=== PATIENT | male | born 1965 | race Hispanic/Latino ===

== ENCOUNTER → 2023-09-11 12:19 | Outpatient (REF) | payer OTHER, SELFPAY | LOC: CLAB 12:19 | PROVIDERS: ATTENDING PHYSICIAN Surgery | DX: Z87.19 Personal history of other diseases of the digestive system (principal) | CPT/HCPCS: 88305; 88341; 88342 ==

== ENCOUNTER → 2023-09-12 06:26 | Day surgery (SDC) | payer OTHER, SELFPAY | LOC: GI 06:26 | PROVIDERS: ATTENDING PHYSICIAN Surgery | DX: Z12.11 Encounter for screening for malignant neoplasm of colon (principal); Z80.0 Family history of malignant neoplasm of digestive organs; Z86.010 Personal history of colon polyps | CPT/HCPCS: G0105 ==

== ENCOUNTER 2023-10-21 04:12 | Emergency (ER) | payer OTHER, SELFPAY ==
[2023-10-21 04:18] VITALS: BP 136/91
[2023-10-21 04:35] VITALS: BMI 27.4
--- NOTE | 2023-10-21 06:35 | ED.GENMED ---
History of Present Illness
General
Chief Complaint: Fall
Source: patient
Exam Limitations: none
Time Seen by Provider: 10/21/23 05:00
Nursing documentation reviewed up to this point in time: agreed with except (Patient was walking down steps to the garage when he missed a step and fell backward striking his back on the steps.)
Travel History
Have you had any contact with someone who has COVID-19?: No
Do you have any symptoms of coronavirus? Fever > 100 degrees, chills, cough, shortness of breath, sore throat, loss of taste or smell, muscle aches, or headache?: No
History of Present Illness
History of Present Illness:
This is a 57-year-old gentleman who has history of CAD, hypertension, hyperlipidemia and prior history of AL. Chronically maintained on Xarelto as well as low-dose aspirin. Tonight around 9 PM while walking into his garage he stepped down a step,
inadvertently missing the steps and fell backward onto his back. He does not believe he struck his head and denies loss of consciousness. He was able to get up and ambulate but complains of left lateral ankle pain that has gotten progressively
worse as well as left distal thumb pain and swelling. He also notes some mid back pain and mild pain right posterior shoulder. He denies neck pain, denies headache, denies dizziness nor lightheadedness.
He took 2 Tylenol around 2 AM without significant improvement in pain.
He has driven himself to the ED.
Past History
Past History
ED Past Medical History: CAD, HTN, Hypercholesterolemia, AL and Other (HIV)
ED Past Surgical History: Appendectomy and Cardiac (CABG, cardiac catheterization)
Social History
Tobacco: Non-smoker
Alcohol: None
Drug: None
Personal:
Living: with family
Employment: Retired
Family History
Family History: Other (Noncontributory)
Phy Exam
Physical Exam
Physical Exam:
TRAUMA EXAM:
VITAL SIGNS: Vital signs reviewed, cooperative
DISTRESS: No active disease
EYES: Pupils reactive, no orbital trauma
NOSE: No deformity or epistaxis
FACE AND SCALP: No scalp or facial trauma, external canals no blood
NECK: Supple nontender, full range of motion without difficulty nor pain
BACK: Mild midline tenderness mid to lower thoracic spine. No step-off deformity, no soft tissue swelling nor contusion or hematoma. Pelvis stable to compression
RESPIRATORY: No distress, breath sounds normal, no tender chest wall
CARDIAC: No murmur, pulses equal and strong
ABDOMEN: Soft nontender bowel sounds normal
SKIN: Skin intact no bleeding, color normal
EXTREMITIES: Mild to moderate tenderness distal left thumb with mild local soft tissue swelling of the distal left thumb and early ecchymosis. Nail and nailbed are intact. There is full range of motion of thumb and hand as well as digits without
difficulty. Left ankle has mild soft tissue swelling as well as mild ecchymosis laterally with moderate tenderness lateral ankle. Mildly restricted range of motion of left ankle related to pain. There is no tenderness to the foot nor lower leg
nor knee. Sensation and strength intact. Peripheral pulses are full and equal. There is no tenderness to the shoulders and full range of motion of shoulders without difficulty nor pain.
NEUROLOGICAL: Alert, oriented, no motor deficits
PSYCH: Mood affect normal
Course
Orders/Labs/Results
Orders:
Orders
10/21/23 04:33
CR Ankle - Left Min 3 Views Urgent
Comment:
Reason For Exam: fall
CR Finger(s)/thumb Min 2 Vw Lt Urgent
Comment:
Reason For Exam: fall
10/21/23 05:16
Thoracic Spine 3 Views CR [CR Thoracic Spine 3 Views] Urgent
Comment:
Reason For Exam: walking down steps, fell backward, mid back pain
10/21/23 05:18
CT Head W/o Iv Contrast Urgent
Comment:
Reason For Exam: fall backward on steps, (?)head injury-on thinners
10/21/23 05:20
Aluminium Finger Splint Left ONCE
boot [Ortho Boot Left- Treatment] ONCE
Short or tall?: Tall
Vital Signs
Initial and Last Documented VS:
Initial Vital Signs
Temp Pulse Resp BP Pulse Ox
97.7 F 74 20 136/91 98
10/21/23 04:18 10/21/23 04:18 10/21/23 04:18 10/21/23 04:18 10/21/23 04:18
Last Documented Vital Signs
Temp Pulse Resp BP Pulse Ox
97.7 F 74 20 136/91 98
10/21/23 04:18 10/21/23 04:18 10/21/23 04:18 10/21/23 04:18 10/21/23 04:18
MDM/Problems Addressed
Differential Diagnosis Includes:
Patient presents after mechanical fall, falling backward injuring his left thumb, left lateral ankle as well as mid to distal thoracic back.
He is unsure if he struck his head, no evidence of physical head injury but as patient maintained on Xarelto and aspirin will check CT of the head.
Exam concerning for contusion versus fracture of the left distal thumb and concern for left lateral ankle fracture. Will check x-rays and will check thoracic spine x-ray as well.
Patient maintained on Xarelto thus NSAIDs are to be avoided.
Will consider tramadol upon discharge. Patient has driven himself to the ED.
*Radiology
Radiology exam reviewed: preliminary read by ED provider (Left ankle shows mild soft tissue swelling laterally but no evidence of fracture. There is a nondisplaced linear fracture of distal phalanx of left thumb. Thoracic spine shows moderate DJD
but no evidence of acute fracture.) and radiology read reviewed (CT of the head shows no acute traumatic findings.)
*Pulse Oximetry
Patient hypoxic: no
*Critical Care Note
Total Time (30-74mins, 75-104mins- exclusive of procedures): Not Applicable
Update Note
Update Note:
Distal left thumb nondisplaced fracture of distal phalanx. Left thumb has been placed in a frog splint.
Left ankle x-ray negative for fracture. I suspect ankle sprain. He has been placed in a tall Ortho boot and ambulating with steady gait.
Thoracic spine x-ray shows moderate DJD but no evidence of acute fracture.
CT of the head is unremarkable.
Will discharge to home with a prescription for tramadol for as needed moderate pain and recommend he continue Tylenol for mild pain.
Will refer to orthopedics for follow-up As well as follow-up with PCP.
ED Attending Note
-
Portions of this chart may have been created with voice recognition software.� Occasional wrong word or��sound alike� substitutions may have occurred due to the inherent limitations of voice recognition software.
Discharge Plan
Departure
Patient Disposition: Home (Routine Discharge)
Date of Disposition: 10/21/23
Time of Disposition: 06:49
Patient with high blood pressure during this ER visit?: No
Condition: Good
Discharge Problem:
Closed fracture of left thumb, Sprain and strain of left ankle, Contusion of back wall of thorax
Instructions: Ankle Sprain (DC), Preventing falls in adults, Finger Fracture (DC), Walking Boot
Prescriptions:
New
tramadol 50 mg tablet
50 mg PO BID PRN (Reason: Pain) Qty: 10 0RF
No Action
aspirin 81 MG tablet,delayed release (DR/EC)
81 mg PO QPM
Xarelto 20 MG tablet
20 mg PO QPM
Biktarvy 1 EACH tablet
1 ea PO QPM
cholecalciferol (vitamin D3) [Vitamin D3] 50 mcg (2,000 unit) Tablet
50 mcg PO QPM
alprazolam 1 mg tablet
0.5 - 1 mg PO BID PRN (Reason: anxiety/panic/sleep)
Patient Comments:
03/20/2023: last filled 09/17/22, 60 tabs for 30 days from [facility]
rosuvastatin 40 mg tablet
40 mg PO QPM
krill oil [id number],[id number] mg Capsule
1 cap PO QPM
Wegovy 0.25 mg/0.5 mL Pen Injector
0.25 mg SC QWEEK
famotidine [Pepcid] 20 mg tablet
20 mg PO BID PRN (Reason: Gastrointestinal issue)
Referrals:
Hero Jimenez MD [Active] - Call in 1-3 days for appt
Brie Chauhan MD [Family Provider] - Call in 1-3 days for appt
Interventions
Interventions:
*Risk Screen - Suicide Last Done: 10/21/23 04:18
*General Assessment Last Done: 10/21/23 04:18
*Neglect/Abuse Screening Last Done: 10/21/23 04:18
ED- Fall Risk Assessment Last Done: 10/21/23 04:18
*ED COVID-19 Vaccine History Last Done: 10/21/23 04:18
ED-Musculoskeletal Assessment Last Done: 10/21/23 04:47
ED- Neurological Assessment Last Done: 10/21/23 04:35
ED-Skin Assessment Last Done: 10/21/23 04:35
Discharge Date and Time
Print Language: KHMER
[2023-10-21] MEDS: ULTRAM 50 MG PO (06:54)
== END 2023-10-21 07:01 | disposition home or self-care (01) ==
LOC: EMR 04:12
PROVIDERS: EMERGENCY PHYSICIAN Emergency Medicine; FAMILY PHYSICIAN Family Medicine
DX: S96.912A Strain of unspecified muscle and tendon at ankle and foot level, left foot, initial encounter (principal); S29.012A Strain of muscle and tendon of back wall of thorax, initial encounter; S62.525A Nondisplaced fracture of distal phalanx of left thumb, initial encounter for closed fracture; W10.9XXA Fall (on) (from) unspecified stairs and steps, initial encounter; I25.10 Atherosclerotic heart disease of native coronary artery without angina pectoris; I10 Essential (primary) hypertension; E78.00 Pure hypercholesterolemia, unspecified; I25.2 Old myocardial infarction
CPT/HCPCS: 99284; 29130; 70450; 72072; 73140; 73610

== ENCOUNTER → 2023-10-23 15:11 | Outpatient (REF) | payer OTHER, SELFPAY | LOC: RAD 15:11 | PROVIDERS: ATTENDING PHYSICIAN Family Medicine | DX: Z12.2 Encounter for screening for malignant neoplasm of respiratory organs (principal) | CPT/HCPCS: 71271 ==

== ENCOUNTER → 2024-10-30 08:55 | Outpatient (REF) | payer OTHER, SELFPAY | LOC: HWRAD 08:55 | PROVIDERS: ATTENDING PHYSICIAN Family Medicine | DX: Z87.891 Personal history of nicotine dependence (principal); Z12.2 Encounter for screening for malignant neoplasm of respiratory organs | CPT/HCPCS: 71271 ==

== ENCOUNTER → 2025-06-26 09:33 | Outpatient (REF) | payer OTHER, SELFPAY | LOC: RAD 09:33 | PROVIDERS: ATTENDING PHYSICIAN Nurse Practitioner | DX: R05.3 Chronic cough (principal) | CPT/HCPCS: 71046 ==